=== PATIENT | female | born 1985 | race Caucasian/White ===

== ENCOUNTER → 2023-09-29 | Outpatient (REF) | payer OTHER, SELFPAY | LOC: DHSLP | PROVIDERS: ATTENDING PHYSICIAN Internal Medicine Critical Care Medicine; FAMILY PHYSICIAN Student in an Organized Health Care Education/Training Program | DX: G47.33 Obstructive sleep apnea (adult) (pediatric) (principal) | CPT/HCPCS: 95800 ==

== ENCOUNTER 2024-02-14 06:17 | Day surgery (SDC) | payer OTHER, SELFPAY ==
[2024-02-14] VITALS (7 sets, daily range): BP systolic 102–121; BP diastolic 75–85; BMI 31.2
[2024-02-14] MEDS: CELEBREX 200 MG PO (06:31)
[2024-02-14] MEDS: TYLENOL 1000 MG PO (06:31)
[2024-02-14] MEDS: NORMOSOL-R/PLASMALYTE-A 1000 IV (06:39)
--- NOTE | 2024-02-14 08:14 | W.IMMPOSTOP ---
Addendum entered and electronically signed by Irineo Marie MD 02/14/24 10:57:
Error: excision of anal skin tag 'x3'
Original Note:
Surgical Immed Post Op Note
-
Primary Surgeon: Irineo Marie MD
Assisting Surgeon: None
Pre-op Diagnosis: Anal skin tags, internal hemorrhoids
Post-op Diagnosis: Anal skin tags, internal hemorrhoids
Procedure Performed: Exam under anesthesia, excision of anal skin tags x 2, suture ligation of internal hemorrhoids x 3, bilateral pudendal nerve block
Anesthesia Type: Sedation with local
Specimen / Cultures: Left posterior skin tag, small anterior skin tag, large anterior skin tag
Estimated Blood Loss: 5 mL
Complications: None
Operative Findings: 2 small skin tags in the left posterior and anterior midline, excised sharply; 1 large skin tag in the anterior midline, excised sharply; 3 small internal hemorrhoids in the right anterior, right lateral and left lateral
position, suture ligated with [id number] 2-0 Vicryl's; left Surgicel within the anal canal and dressed with gauze and silk tape
--- NOTE | 2024-02-14 08:17 | OR.RPT ---
Operative Report
Operative Report
DATE OF OPERATION: 02/14/2024
SURGEON: Irineo Marie MD
PREOPERATIVE DIAGNOSIS: Anal skin tags, internal hemorrhoids
POSTOPERATIVE DIAGNOSIS: Anal skin tags, internal hemorrhoids
OPERATION: Exam under anesthesia, excision of anal skin tags x 3, suture ligation of internal hemorrhoids x 3, bilateral pudendal nerve block
ASSISTANTS:
1. None
ANESTHESIA: Sedation with local
ESTIMATED BLOOD LOSS: 5 mL
FINDINGS:
1. Small anal skin tag in the left posterior position, small anal skin tag in the anterior midline adjacent to a large anal skin tag in the anterior midline; all sharply excised and left open
2. Small circumferential external hemorrhoids without irritation or thrombosis, unlikely contributing to symptoms
3. Small internal hemorrhoids in the right anterior, right lateral and left lateral position with mild amount of irritation, no bleeding; performed suture ligation of each
SPECIMENS:
1. Left posterior skin tag, small anterior skin tag, large anterior skin tag
DRAINS: None
COMPLICATIONS: None
INDICATIONS: The patient is a 38-year-old female who presented with irritation and difficulty with perianal hygiene. On exam, she was found to have 3 anal skin tags and mild internal hemorrhoids. She was initially treated with nonoperative
measures with barrier protection cream and bowel habit optimization. Despite these efforts, she continued to have perianal irritation with difficulty cleaning. Therefore, the patient was recommended to have surgery. Due to the nature of the
external hemorrhoids associated with the skin tags, I felt it safer to perform this procedure in the operating room for better hemostasis. The operation was discussed with the patient in detail, including the risks, benefits and alternatives. I
discussed the possibility of performing suture ligation of internal hemorrhoids since these were noted on my office exam and frequently contribute to perianal irritation. I explained that the most definitive procedure for internal hemorrhoids is a
surgical excision. However, I do not anticipate the need to perform this. If I discovered the hemorrhoids were too large and would require surgical excision, I would stop the operation and discuss this with her first. She agreed to this plan.
Risks described included, but not limited to, bleeding, infection, urinary retention, damage to nearby structures such as the anal sphincter, fecal incontinence, anal stenosis, recurrence, and anesthetic risks. The patient understood and agreed to
proceed. The consent was signed and placed in the chart.
PROCEDURE IN DETAIL: The patient was taken to the operating room. The patient was then placed on the operating table in prone position. Sequential compression devices were placed bilaterally. Sedation was commenced without complication. Two seat
belts were secured around the legs and upper back. The buttocks were taped apart. The perineum was shaved, prepped and draped in the usual fashion. A time-out was then performed verifying the correct patient, procedure, operative site,
positioning, and special equipment.
Local anesthesia used was a mixture of 60 mL of 0.25% Marcaine epinephrine and 0.6 mg of dexamethasone. 40 mL was injected perianally at the beginning of the case. The anorectal exam was performed assessing all four quadrants of the anal canal
using Hill-Owen retractors in progressively increasing size. The anal skin tags were as initially described from my office evaluation, which was two small anal skin tags in the left posterior and anterior midline as well as a large anal skin
tag in the anterior midline immediately adjacent to the small tag. She had small circumferential external hemorrhoids visible at the anal verge. These were not swollen, irritated or thrombosed. Internally, she had small mildly irritated internal
hemorrhoids in the right anterior, right lateral and left lateral position. Her symptoms were most likely related to the anal skin tags. However, with the mild irritation noted, I felt that ligating these internal hemorrhoids would help improve
her irritation as well as possibly decrease the blood flow to the external component of the hemorrhoids. No other anorectal pathology was noted. There was no proctitis.
I proceeded with excision of the external anal skin tags. I grasped the skin tag and elevated it away from the sphincter. Using Metzenbaum scissors, I sharply excised the skin tag, taking care to avoid injury to the underlying external sphincter.
The specimen was passed off for pathology. Hemostasis of the wound bed was achieved with electrocautery. The remaining skin tags were excised in a similar fashion. The wounds were left open to heal by secondary intention in order to decrease the
risk of infection.
I proceeded with suture ligation of the internal hemorrhoids. I exposed each hemorrhoid with the large Hill-Owen retractor. I ligated the pedicle and hemorrhoid with a figure of eight 2-0 Vicryl. The remaining internal hemorrhoids were
ligated in a similar fashion. Hemostasis was checked and assured.
The remaining 20 mL of local were injected. 5 mL was injected bilaterally for a pudendal nerve block. 10 mL was injected around the surgical site and perianally. Hemostasis was reassessed once more using the small Hill-Owen and was confirmed.
Surgicel was placed in the operative site prophylactically.
At this point, the procedure was complete. All needle, sponge and instrument counts were correct. The patient tolerated the procedure well and was transferred to the recovery room in stable condition with gauze dressing in place secured with silk
tape.
DICTATED BY: Irineo Marie MD
== END 2024-02-14 09:10 | disposition home or self-care (01) ==
LOC: SDS 06:17
PROVIDERS: ATTENDING PHYSICIAN Surgery
DX: K64.8 Other hemorrhoids (principal); K64.4 Residual hemorrhoidal skin tags
CPT/HCPCS: 46946; 46230; 88304; 87070; 88341; 88342

== ENCOUNTER → 2024-12-31 08:18 | Outpatient (REF) | payer OTHER, SELFPAY | LOC: HWRAD 08:18 | PROVIDERS: ATTENDING PHYSICIAN Nurse Practitioner Family; FAMILY PHYSICIAN Student in an Organized Health Care Education/Training Program | DX: N93.9 Abnormal uterine and vaginal bleeding, unspecified (principal) | CPT/HCPCS: 76830; 76856 ==

== ENCOUNTER → 2025-03-03 08:08 | Outpatient (REF) | payer OTHER, SELFPAY | LOC: HWRAD 08:08 | PROVIDERS: ATTENDING PHYSICIAN Student in an Organized Health Care Education/Training Program | DX: K90.0 Celiac disease (principal); L65.9 Nonscarring hair loss, unspecified; M54.9 Dorsalgia, unspecified; M79.641 Pain in right hand; M79.642 Pain in left hand; M79.89 Other specified soft tissue disorders | CPT/HCPCS: 72202 ==